=== PATIENT | male | born 1945 ===

== ENCOUNTER → 2018-09-27 | Outpatient (CLI) | payer MEDICARE, BC ==
[2018-09-26 15:41] VITALS: BMI 24.0
[2018-09-27 12:45] VITALS: BP 176/104; PULSE 89; RESP 18; TEMP 98.2
--- NOTE | 2018-09-27 13:10 | P.CONS ---
History of Present Illness - Reason for Consult Consult date: 09/27/18 - Chief Complaint Lower back and left leg pain - History of Present Illness This is a 73-year-old gentleman with history of lower back pain with radiation to the left lower extremity occasionally to the left foot with numbness and tingling in both feet. The patient denies any bowel or bladder dysfunction or any weakness in the lower extremities. He also denies any weight loss recently. This pain gets worse by any prolonged activity. Review of Systems Constitutional: Denies chills, Denies fever Ears, nose, mouth and throat: Denies headache, Denies sore throat Cardiovascular: Denies chest pain, Denies shortness of breath Respiratory: Denies cough Musculoskeletal: Reports as per HPI Neurological: Reports as per HPI Past Medical History Past Medical History: Coronary Artery Disease (CAD), GERD/Reflux, Hyperlipidemia, Hypertension, Myocardial Infarction ([place]) Additional Past Medical History / Comment(s): back pain,bulging discs,numbness left leg and pain Last Myocardial Infarction Date:: 2012 History of Any Multi-Drug Resistant Organisms: None Reported Past Surgical History: Heart Catheterization, Heart Catheterization With Stent, Orthopedic Surgery Additional Past Surgical History / Comment(s): cervical C6-C7 fusion, rt shoulder repair,angioplasty x7,heart stents x9 Past Anesthesia/Blood Transfusion Reactions: No Reported Reaction Date of Last Stent Placement:: Smoking Status: Former smoker Past Alcohol Use History: Rare Additional Past Alcohol Use History / Comment(s): quit 1979,smoked approx 14 yrs 1/2 ppd on and off Past Drug Use History: None Reported - Past Family History Mother Family Medical History: No Reported History Medications and Allergies Home Medications Medication Instructions Recorded Confirmed Type Aspirin 162 mg PO DAILY 09/26/18 09/27/18 History Clopidogrel [Plavix] 75 mg PO DAILY 09/26/18 09/27/18 History Finasteride [Proscar] 5 mg PO DAILY 09/26/18 09/27/18 History Metoprolol Succinate [Toprol XL] 25 mg PO DAILY 09/26/18 09/27/18 History Multivitamins, Thera [Multivitamin 1 tab PO DAILY 09/26/18 09/27/18 History (formulary)] Pantoprazole [Protonix] 40 mg PO DAILY 09/26/18 09/27/18 History Quinapril HCl [Accupril] 40 mg PO DAILY 09/26/18 09/27/18 History Allergies Allergy/AdvReac Type Severity Reaction Status Date / Time No Known Allergies Allergy Verified 09/26/18 15:26 Physical Exam Vitals: Vital Signs Temp Pulse Resp BP Pulse Ox 09/27/18 12:37 98.2 F 89 18 176/104 97 Intake and Output 09/26/18 09/27/18 09/27/18 22:59 06:59 14:59 Other: Weight 78.018 kg - Constitutional General appearance: average body habitus - Respiratory Respiratory: bilateral: CTA - Cardiovascular Rhythm: regular - Neurologic Neuro exam of the lower extremities showed normal and symmetrical muscle strength. Decreased left knee reflex compared to the right knee reflex and absent ankle reflex bilaterally. Straight leg raising test negative bilaterally. Facet loading test is positive Mild tenderness in the lumbar paravertebral area bilaterally. Neurologic: CNII-XII intact - Psychiatric Psychiatric: A&O x's 3, appropriate affect, intact judgment & insight Results Results: The lumbar spine MRI shows degenerative disc disease and severe disc space na rrowing at L5-S1 level with facet arthropathy and moderate bilateral neuroforaminal encroachment at this level. The patient widespread DDD. Assessment and Plan Plan: This is a 73-year-old gentleman with what seems to be lumbar radiculopathy on the left side. The patient has coronary artery disease and he is on Plavix. The patient may benefit from getting lumbar epidural steroid injection at the L4 5 or L5-S1 levels in the left paramedian approach under fluoroscopic guidance. The procedure was explained to the patient and he was agreeable to it. We will contact his bag liner to see if it's safe to hold his Plavix for 7 days before the procedure. I thank you for the referral.
== END | disposition home or self-care (01) ==
LOC: PNWHC3 12:10
PROVIDERS: ATTEND Anesthesiology
DX: M48.07 Spinal stenosis, lumbosacral region (principal); M51.37 Other intervertebral disc degeneration, lumbosacral region; M46.87 Other specified inflammatory spondylopathies, lumbosacral region; I25.10 Atherosclerotic heart disease of native coronary artery without angina pectoris; K21.9 Gastro-esophageal reflux disease without esophagitis; E78.5 Hyperlipidemia, unspecified; I10 Essential (primary) hypertension; I25.2 Old myocardial infarction; Z95.5 Presence of coronary angioplasty implant and graft; Z79.02 Long term (current) use of antithrombotics/antiplatelets; Z98.890 Other specified postprocedural states; Z87.891 Personal history of nicotine dependence; Z79.82 Long term (current) use of aspirin
CPT/HCPCS: 99211

== ENCOUNTER 2018-10-11 08:19 | Day surgery (SDC) | payer MEDICARE, BC ==
[2018-10-04 14:40] VITALS: BMI 24.0
[~2018-10-11 08:19] MED LIST: SODIUM CHLORIDE 0.9% 500 ML 500 ML IV SCH
[2018-10-11 09:36] VITALS: TEMP 97.9
[2018-10-11] MEDS ORDERED: LACTATED RINGERS 1,000 ML IV ONE (09:36)
[2018-10-11] MEDS ORDERED: LIDOCAINE 1% 20 ML VIAL (10MG/ML) FOR IV START INTRADERMA ONE (09:36)
--- NOTE | 2018-10-11 10:50 | P.PCN ---
Date of Procedure: 10/11/18 Procedure(s) Performed: PREOPERATIVE DIAGNOSIS: 1- Lumbar Degenerative Disc Diseases 2-Lumbar spondylosis with Facet arthropathy without myelopathy POSTOPERATIVE DIAGNOSIS: 1-Lumber Degenerative Disc Diseases 2-Lumbar spondylosis with Facet arthropathy without myelopathy PROCEDURE 1. Lumbar epidural steroid injection under fluoroscopic guidance at the L5-S1 level. 2. Lumbar epidurogram. ANESTHESIA: Local with 1% lidocaine 3 ml and , moderate sedation with intravenous Versed 1 mg ,and fentanyle 50 Mcg EBL: Minimal PROCEDURE INDICATION: The patient with low back pain and radiculitis symptoms unresponsive to conservative treatment. Fluoroscopy was used to optimize visualization of the needle placement and to maximize safety. PROCEDURE DESCRIPTION / TECHNIQUE: The patient was seen and identified in the preoperative area. Risks, benefits, complications including but not limited to infections ,bleeding ,allergic reaction to the medications ,nerve damage and not complete pain releife , and alternatives were discussed with the patient. The patient agreed to proceed with the procedure and signed the consent. IV was started, and vital signs were stable. Patient was taken to the OR and time out was completed. The patient was placed in the prone position on procedure table and a pillow was placed under the abdomen to reduce lumbar lordosis. The lumbosacral area was prepped and draped in the usual sterile fashion.ere closely monitored during the procedure. Conscious sedation was used during the procedure to decrease patients anxiety. Vital signs was monitered during the entire procedure. Using anterior-posterior fluoroscopy, the L5-S1 interlaminar space was identified and the skin over this site was marked and then infiltrated with 1% lidocaine subcutaneously. Subsequently, a 20-gauge Tuohy epidural needle was inserted and advanced toward the epidural space using the ``Loss of resistance technique and guided by AP and lateral fluoroscopy. The correct needle position in the epidural space was verified with the injection of 2 mL of the water soluble contrast dye Isovue 200 contrast and observing an excellent epidurogram with the epidural spread of the dye, after negative aspiration for blood and CSF and in the absence of paresthesias. Again after negative aspiration, a 6 ml mixture containing 40 mg of Depo-medrol , and 2 ml of preservative free Normal Saline, and 2 ml of preservative free lidocaine 1% solution was injected and a washout of epidurogram was seen. Needle was withdrawn intact, skin was cleansed, and bandages were applied. COMPLICATIONS: None DISPOSITION / PLANS: The patient was placed in a supine position and transferred to the recovery area in a stable condition for observation. There was no evidence of lower extremity motor or sensory deficit after the procedure. Patient was discharged from the recovery room after meeting discharge criteria. Home discharge instructions were given to the patient by the staff. The patient was reexamined prior to discharge. The patient will schedule a follow up in the clinic in 2-4 weeks.
--- NOTE | 2018-10-11 10:56 | FL ---
EXAMINATION TYPE: FL guided pain mgmt statistic DATE OF EXAM: 10/11/2018 HISTORY: Flouroscopy time 1 seconds of fluoroscopy provided. IMPRESSION: 1. Fluoroscopy time.
[2018-10-11] MEDS ORDERED: IV FLUID CONTINUATION 825 ML IV ONE (10:57)
[2018-10-11 11:17] VITALS: BP 162/74; PULSE 55; RESP 16
== END 2018-10-11 11:30 | disposition home or self-care (01) ==
LOC: ORPAIN 08:19
PROVIDERS: ATTEND Specialist
DX: M47.26 Other spondylosis with radiculopathy, lumbar region (principal); M51.16 Intervertebral disc disorders with radiculopathy, lumbar region; I25.10 Atherosclerotic heart disease of native coronary artery without angina pectoris; Z98.1 Arthrodesis status; I10 Essential (primary) hypertension; E78.5 Hyperlipidemia, unspecified; K21.9 Gastro-esophageal reflux disease without esophagitis; I25.2 Old myocardial infarction; Z95.5 Presence of coronary angioplasty implant and graft; Z87.891 Personal history of nicotine dependence; Z79.02 Long term (current) use of antithrombotics/antiplatelets; Z79.82 Long term (current) use of aspirin; Z79.899 Other long term (current) drug therapy
CPT/HCPCS: 62323; J2250; J1030; J3010; Q9966

== ENCOUNTER 2018-11-02 08:48 | Day surgery (SDC) | payer MEDICARE, BC ==
[2018-10-27 14:50] VITALS: BMI 24.4
[2018-11-02 09:11] VITALS: RESP 16; TEMP 97.7
--- NOTE | 2018-11-02 09:34 | P.PCN ---
Date of Procedure: 11/02/18 Procedure(s) Performed: Lumbar epidural steroid injection Description of Procedure: PREOPERATIVE DIAGNOSIS: 1-lumbar radiculopathy POSTOPERATIVE DIAGNOSIS: Lumbar radiculopathy PROCEDURE 1. Lumbar epidural steroid injection under fluoroscopic guidance at the L5-S1 level. 2. Lumbar epidurogram. ANESTHESIA: Local with 1% lidocaine 5 ml EBL: Minimal PROCEDURE INDICATION: The patient with low back pain and radiculitis symptoms unresponsive to conservative treatment. Fluoroscopy was used to optimize visualization of the needle placement and to maximize safety. PROCEDURE DESCRIPTION / TECHNIQUE: The patient was seen and identified in the preoperative area. Risks, benefits, complications including but not limited to infections ,bleeding ,allergic reaction to the medications ,nerve damage and incomplete pain relief , as well as alternatives to the procedure were discussed with the patient. The patient agreed to proceed with the procedure and signed the consent. IV was started, and vital signs were stable. Patient was taken to the OR and time out was completed. The patient was placed in the prone position on procedure table and a pillow was placed under the abdomen to reduce lumbar lordosis. The lumbosacral area was prepped and draped in the usual sterile fashion. Vitals were closely monitored during the procedure. Using anterior-posterior fluoroscopy, the L5-S1 interlaminar space was identified and the skin over this site was marked and then infiltrated with 1% lidocaine subcutaneously. Subsequently, a 20-gauge Tuohy epidural needle was inserted and advanced toward the epidural space using the ``Loss of resistance technique and guided by AP and lateral fluoroscopy. The correct needle position in the epidural space was verified with the injection of 1 mL of the water soluble contrast dye Omnipaque 180 contrast and observing an excellent epidurogram with the epidural spread of the dye, after negative aspiration for blood and CSF and in the absence of paresthesias. Again after negative aspiration, a 4 ml mixture containing 40 mg of Depo-Medrol and 3 ml of preservative free Normal Saline was injected and a washout of epidurogram was seen. Needle was withdrawn intact, skin was cleansed, and bandages were applied. COMPLICATIONS: None DISPOSITION / PLANS: The patient was placed in a supine position and transferred to the recovery area in a stable condition for observation. There was no evidence of lower extremity motor or sensory deficit after the procedure. Patient was discharged from the recovery room after meeting discharge criteria. Home discharge instructions were given to the patient by the staff. The patient was reexamined prior to discharge. The patient will schedule a follow up in the clinic as needed
--- NOTE | 2018-11-02 09:52 | FL ---
EXAMINATION TYPE: FL guided pain mgmt statistic DATE OF EXAM: 11/02/2018 HISTORY: Flouroscopy time 2 seconds of fluoroscopy provided. IMPRESSION: 1. Fluoroscopy time.
[2018-11-02 09:53] VITALS: BP 139/76; PULSE 55
== END 2018-11-02 10:13 | disposition home or self-care (01) ==
LOC: ORPAIN 08:48
PROVIDERS: ATTEND Hospitalist
DX: M54.16 Radiculopathy, lumbar region (principal); Z79.02 Long term (current) use of antithrombotics/antiplatelets
CPT/HCPCS: 62323; J1030; Q9966

== ENCOUNTER 2019-10-25 14:09 | Observation (INO) | payer MEDICARE, BC ==
[2019-10-25 15:03] LABS: Basophils # (A) 0.1 k/uL (0-0.2); Basophils % (A) 1 %; Eosinophils # (A) 0.7 k/uL (0-0.7); Eosinophils % (A) 6 %; Lymphocytes # (A) 1.9 k/uL (1.0-4.8); Lymphocytes % (A) 19 %; MCHC 33.3 g/dL (31.0-37.0); Mean Platelet Volume 7.6; Monocytes # (A) 0.6 k/uL (0-1.0); Monocytes % (A) 6 %; Neutrophils % (A) 66 %; Platelet Count 261 k/uL (150-450); RBC 4.66 m/uL (4.30-5.90); RDW 14.6 % (11.5-15.5); WBC 10.5 k/uL (3.8-10.6)
[2019-10-25 15:08] LABS: Albumin 4.4 g/dL (3.5-5.0); Potassium 4.3 mmol/L (3.5-5.1); Total Bilirubin 0.3 mg/dL (0.2-1.3); Total Protein 7.2 g/dL (6.3-8.2)
[2019-10-25 15:26] LABS: INR 0.9 (<1.2); Partial Thromboplastin Time 24.5 sec (22.0-30.0); Prothrombin Time 9.6 sec (9.0-12.0)
[2019-10-25 15:28] LABS: D-Dimer 0.89 mg/L FEU (<0.60)
--- NOTE | 2019-10-25 15:30 | XR ---
EXAMINATION TYPE: XR chest 1V DATE OF EXAM: 10/25/2019 COMPARISON: None INDICATION: Chest pain x3 days TECHNIQUE: Single frontal view of the chest is obtained. FINDINGS: The heart size is upper limits of normal.. The pulmonary vasculature is normal. The lungs are clear. IMPRESSION: 1. No acute pulmonary process.
--- NOTE | 2019-10-25 15:47 | ED ---
Chest Pain HPI - General Chief Complaint: Chest Pain Stated Complaint: Chest Pain Time Seen by Provider: 10/25/19 14:47 Source: patient, RN notes reviewed Mode of arrival: wheelchair Limitations: no limitations - History of Present Illness Initial Comments: Is a 74-year-old male history of heart disease with multiple stents in a plastics who presents today with complaints of yesterday of retrosternal chest pain with radiation to his left arm 6 or 7/10 severity is worse no current chest pain no shortness breath fevers chills nausea vomiting sweats at this time. He states pain it feels similar to his previous episodes. This has been going on for told 3/2 days. Most of his cardiac work was done at [facility]. MD Complaint: chest pain - Related Data Home Medications Medication Instructions Recorded Confirmed Aspirin 162 mg PO DAILY 09/26/18 10/25/19 Clopidogrel [Plavix] 75 mg PO DAILY 09/26/18 10/25/19 Finasteride [Proscar] 5 mg PO DAILY 09/26/18 10/25/19 Metoprolol Succinate [Toprol XL] 25 mg PO DAILY 09/26/18 10/25/19 Pantoprazole [Protonix] 40 mg PO DAILY 09/26/18 10/25/19 Quinapril HCl [Accupril] 40 mg PO DAILY 09/26/18 10/25/19 Cyanocobalamin (Vitamin B-12) 2,000 mcg PO DAILY 10/25/19 10/25/19 [Vitamin B-12] Nitroglycerin Sl Tabs [Nitrostat] 0.4 mg SL Q5M PRN 10/25/19 10/25/19 Ubidecarenone [Co Q-10] 100 mg PO DAILY 10/25/19 10/25/19 Allergies Allergy/AdvReac Type Severity Reaction Status Date / Time No Known Allergies Allergy Verified 10/25/19 15:45 Review of Systems ROS Statement: Those systems with pertinent positive or pertinent negative responses have been documented in the HPI. ROS Other: All systems not noted in ROS Statement are negative. EKG Findings - EKG Results: EKG: interpreted by LEROY, sinus rhythm (Sinus rhythm a 61. We'll 154 QRS duration 84 QT since QTC 412/[address]-T wave changes) Past Medical History Past Medical History: Coronary Artery Disease (CAD), GERD/Reflux, Hyperlipidemia, Hypertension, Myocardial Infarction ([place]) Additional Past Medical History / Comment(s): back pain,bulging discs,numbness left leg and pain Last Myocardial Infarction Date:: 2012 History of Any Multi-Drug Resistant Organisms: None Reported Past Surgical History: Heart Catheterization, Heart Catheterization With Stent, Orthopedic Surgery Additional Past Surgical History / Comment(s): cervical C6-C7 fusion, rt shoulder repair,angioplasty x7,heart stents x9 Past Anesthesia/Blood Transfusion Reactions: No Reported Reaction Date of Last Stent Placement:: Past Psychological History: No Psychological Hx Reported Smoking Status: Former smoker Past Alcohol Use History: Rare Past Drug Use History: None Reported - Past Family History Mother Family Medical History: No Reported History General Exam - General Exam Comments Initial Comments: This is a well-developed well-nourished awake alert oriented 3 male Limitations: no limitations General appearance: alert, in no apparent distress Head exam: Present: atraumatic, normocephalic, normal inspection Eye exam: Present: normal appearance, PERRL, EOMI. Absent: scleral icterus, conjunctival injection, periorbital swelling ENT exam: Present: normal exam, mucous membranes moist Neck exam: Present: normal inspection. Absent: tenderness, meningismus, lymphadenopathy Respiratory exam: Present: normal lung sounds bilaterally. Absent: respiratory distress, wheezes, rales, rhonchi, stridor Cardiovascular Exam: Present: regular rate, normal rhythm, normal heart sounds. Absent: systolic murmur, diastolic murmur, rubs, gallop, clicks GI/Abdominal exam: Present: soft, normal bowel sounds. Absent: distended, tenderness, guarding, rebound, rigid Extremities exam: Present: normal inspection, full ROM, normal capillary refill. Absent: tenderness, pedal edema, joint swelling, calf tenderness Back exam: Present: normal inspection Neurological exam: Present: alert, oriented X3, CN II-XII intact Psychiatric exam: Present: normal affect, normal mood Skin exam: Present: warm, dry, intact, normal color. Absent: rash Course Vital Signs 10/25/19 10/25/19 14:15 15:26 Temperature 98.2 F Pulse Rate 72 60 Respiratory 18 18 Rate Blood Pressure 221/92 187/82 O2 Sat by Pulse 97 99 Oximetry Chest Pain MDM - MDM I did reevaluate patient several occasions pain-free at this time the presentation is consistent with angina. Patient does have a mildly elevated d- dimer and will get a CAT scan. I did discuss the findings the patient's daughter patient be admitted cardiology consultation. Disposition Clinical Impression: Chest pain, Unstable angina pectoris Disposition: ADMITTED IP TO THIS [facility] Condition: Fair Referrals: Chris Quinn MD [Primary Care Provider] - 1-2 days
[2019-10-25] MEDS ORDERED: NITROGLYCERIN OINT 1 INCH/GM PACKET TOPICAL STA (16:17)
[2019-10-25] MEDS ORDERED: HEPARIN SODIUM,PORCINE 5,000 UNIT/ML 1 ML VIAL IV ONE (16:20)
[2019-10-25] MEDS ORDERED: NITROGLYCERIN SL TABS 0.4 MG TAB SUBLINGUAL PRN ×2 (16:20→21:02)
[2019-10-25] MEDS ORDERED: HEPARIN SOD,PORK IN 0.45% NACL 25,000 UNIT in 0.45% NACL 1 250ML.BAG IV SCH (16:30)
[2019-10-25] MEDS ORDERED: SODIUM CHLORIDE 0.9% 1,000 ML IV SCH (16:30)
--- NOTE | 2019-10-25 16:53 | CT ---
EXAMINATION TYPE: CT angio chest DATE OF EXAM: 10/25/2019 COMPARISON: Radiograph same day HISTORY: 74-year-old male with chest pain TECHNIQUE: Contiguous axial scanning of the chest performed with IV Contrast, patient injected with 8 0 mL of Isovue 370. Coronal/sagittal MIP reconstructions performed. CT DLP: 349.7 mGycm Automated exposure control for dose reduction was used. FINDINGS: Heart upper limits of normal in size without pericardial effusion. Extensive three-vessel coronary ar kennedy calcifications are present. No flattening of the interventricular septum or reflux of contrast i nto the hepatic veins. Aortic root and borderline ectatic at 3.6 cm. Mild atherosclerotic arch calcifications. There is a di rect takeoff of the left vertebral artery directly from the aortic arch. Satisfactory opacification of the pulmonary arterial system. Assessment of the basilar segmental lowe r lobe and inferior lingular segmental and more distal pulmonary arteries is nondiagnostic due to roseanne athing motion. Otherwise, no pulmonary embolus elsewhere in the lungs. Mild dependent atelectasis. Mild diffuse bronchial wall thickening. No consolidation or pleural effus ion. Prominent 1 cm left hilar lymph node likely reactive/post inflammatory. Otherwise, no mesenteric or r etroperitoneal lymphadenopathy. Tiny hiatal hernia. Bones: Mild degenerative disc disease upper thoracic spine. IMPRESSION: 1. BREATHING MOTION AT THE LOWER LUNGS. BASILAR LOWER LOBE SEGMENTAL, INFERIOR LINGULAR SEGMENTAL, AN D MORE DISTAL PULMONARY ARTERIAL BRANCHES IN THESE REGIONS ARE NONDIAGNOSTIC DUE TO THE BREATHING MOT ION. NO EVIDENCE FOR PULMONARY EMBOLUS ELSEWHERE IN THE LUNGS. 2. MILD DIFFUSE BRONCHIAL WALL THICKENING. CORRELATE FOR BRONCHITIS OR ASTHMA. 3. CAD WITH EXTENSIVE THREE-VESSEL CORONARY ARTERY CALCIFICATIONS.
--- NOTE | 2019-10-25 21:10 | P.HPIM ---
History of Present Illness H&P Date: 10/25/19 Chief Complaint: Chest pain History of presenting complaint: This is a very pleasant 74-year-old patient of Dr. Quinn. 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 Patient's had several stents last one being in 2017. Chronic stable medical conditions include GERD, hyperlipidemia, hypertension, active pain with herniated disc and some radicular presents in the left leg. P atient for last 3-4 days been having pain across the chest sometimes into shoulder and jaw. Mostly coming on with activity in the morning. No dizziness no lightheadedness shortness of breath. Pain duration is variable. Admitted with unstable angina. Review of systems: GEN.: None EYES: None HEENT: None NECK: None RESPIRATORY: None CARDIOVASCULAR: As above GASTROINTESTINAL: None GENITOURINARY: BPH symptoms MUSCULOSKELETAL: None LYMPHATICS: None HEMATOLOGICAL: None PSYCHIATRY: None NEUROLOGICAL: None Past medical history to include: Cor artery disease with multiple stents, GERD, hypertension, hyperlipidemia, low back pain with herniated disc and 71 to patches left like Social history: Patient stopped smoking in 1979 smoked for about 14 years about half a pack a day on and off. Alcohol rarely. . Used to work with [employer] in multiple jobs Family history: Reviewed, noncontributory to presentation Physical examination: VITAL SIGNS: 98.2, 72, 18, 187/82, 97% on room air GENERAL: BMI 25.0, sitting at the edge of the bed, not in distress. EYES: Pupils equal. Conjunctiva normal. HEENT: External appearance of nose and ears normal, oral cavity grossly normal. NECK: JVD not raised; masses not palpable. HEART: First and second heart sounds are normal; no edema. LUNGS: Respiratory rate normal; clear to auscultation. ABDOMEN: Soft, nontender, liver spleen not palpable, no masses palpable. PSYCH: Alert and oriented x3; mood and affect normal. NEUROLOGICAL: Cranial nerves grossly intact; no facial asymmetry, power and sensation grossly intact. LYMPHATICS: No lymph nodes palpable in the axilla and neck INVESTIGATIONS, reviewed in the clinical context: White count 10.5 hemoglobin 14 platelets 261 progression 4.3 creatinine 1.20 Pulmonary less than 0.012 EKG tracing personally reviewed by me-normal sinus rhythm Chest x-ray film personally reviewed by me-no obvious infiltrates CT chest-no evidence of PE Assessment: -Unstable angina in a patient with known multiple coronary stents. No EKG changes troponin negative. -Coronary artery disease multiple stents in the past -GERD -Hyperlipidemia -Essential hypertension -Lumbar spine herniated disc with left-sided radiculopathy Plan: Currently chest pain-free. Home medications resumed. Patient is put on IV heparin. Cardiology consulted. Care was discussed with the patient question were answered. -We'll keep the patient nothing by mouth after midnight except medications. Past Medical History Past Medical History: Coronary Artery Disease (CAD), GERD/Reflux, Hyperlipidemia, Hypertension, Myocardial Infarction ([place]) Additional Past Medical History / Comment(s): back pain,bulging discs,numbness left leg and pain Last Myocardial Infarction Date:: 2012 History of Any Multi-Drug Resistant Organisms: None Reported Past Surgical History: Heart Catheterization, Heart Catheterization With Stent, Orthopedic Surgery Additional Past Surgical History / Comment(s): cervical C6-C7 fusion, rt shoulder repair,angioplasty x7,heart stents x9 Past Anesthesia/Blood Transfusion Reactions: No Reported Reaction Date of Last Stent Placement:: Past Psychological History: No Psychological Hx Reported Smoking Status: Former smoker Past Alcohol Use History: Rare Additional Past Alcohol Use History / Comment(s): quit 1979,smoked approx 14 yrs 1/2 ppd on and off Past Drug Use History: None Reported - Past Family History Mother Family Medical History: No Reported History Medications and Allergies Home Medications Medication Instructions Recorded Confirmed Type Aspirin 162 mg PO DAILY 09/26/18 10/25/19 History Clopidogrel [Plavix] 75 mg PO DAILY 09/26/18 10/25/19 History Finasteride [Proscar] 5 mg PO DAILY 09/26/18 10/25/19 History Metoprolol Succinate [Toprol XL] 25 mg PO DAILY 09/26/18 10/25/19 History Pantoprazole [Protonix] 40 mg PO DAILY 09/26/18 10/25/19 History Quinapril HCl [Accupril] 40 mg PO DAILY 09/26/18 10/25/19 History Cyanocobalamin (Vitamin B-12) 2,000 mcg PO DAILY 10/25/19 10/25/19 History [Vitamin B-12] Nitroglycerin Sl Tabs [Nitrostat] 0.4 mg SL Q5M PRN 10/25/19 10/25/19 History Ubidecarenone [Co Q-10] 100 mg PO DAILY 10/25/19 10/25/19 History Allergies Allergy/AdvReac Type Severity Reaction Status Date / Time No Known Allergies Allergy Verified 10/25/19 15:45 Physical Exam Vitals: Vital Signs Temp Pulse Pulse Resp BP BP Pulse Ox 10/25/19 18:45 97.8 F 73 18 171/84 98 10/25/19 17:30 98.0 F 64 18 179/83 96 10/25/19 16:00 64 18 183/84 98 10/25/19 15:30 60 18 187/82 98 10/25/19 15:26 60 18 187/82 99 10/25/19 14:15 98.2 F 72 18 221/92 97 Intake and Output 10/25/19 10/25/19 10/25/19 06:59 14:59 22:59 Other: Weight 80.286 kg 80.286 kg Results CBC & Chem 7: 10/25/19 14:40 10/25/19 14:40 Labs: Abnormal Lab Results - Last 24 Hours (Table) 10/25/19 10/25/19 Range/Units 14:40 14:40 D-Dimer 0.89 H (<0.60) mg/L FEU BUN 27 H (9-20) mg/dL Creatine Kinase 204 H (55-170) U/L Thrombosis Risk Factor Assmnt - Choose All That Apply Each Risk Factor Represents 2 Points: Age 61-74 years Other congenital or acquired thrombophilia - If yes, enter type in comment: No Thrombosis Risk Factor Assessment Total Risk Factor Score: 2 Thrombosis Risk Factor Assessment Level: Low Risk
[2019-10-26 02:01] LABS: Cholesterol 191 mg/dL (<200); HDL Cholesterol 46 mg/dL (40-60); LDL Cholesterol,Calculated 133 mg/dL (0-99); Triglycerides 62 mg/dL (<150)
[2019-10-26] MEDS: NITROGLYCERIN OINT 1 INCH/GM PACKET TOPICAL SCH ×3 (07:40→13:24)
[2019-10-26] MEDS ORDERED: CAFFEINE CITRATE 60 MG/3 ML VIAL IV PRN (07:42)
[2019-10-26] MEDS ORDERED: AMINOPHYLLINE 500 MG/20 ML VIAL IV PRN (07:42)
[2019-10-26] MEDS ORDERED: REGADENOSON 0.4 MG/5 ML SYRINGE IV ONE (07:42)
[2019-10-26] MEDS ORDERED: amLODIPine 5 MG TAB PO STA (08:01)
[2019-10-26 08:52] VITALS: PULSE 66; RESP 20
[2019-10-26] MEDS ORDERED: CYANOCOBALAMIN 500 MCG TAB PO SCH (09:00)
[2019-10-26] MEDS ORDERED: LISINOPRIL 20 MG TAB PO SCH (09:00)
[2019-10-26] MEDS ORDERED: METOPROLOL SUCCINATE (ER) 25 MG TAB.ER.24H PO SCH (09:00)
[2019-10-26] MEDS ORDERED: ASPIRIN 325 MG TAB PO SCH (09:00)
[2019-10-26] MEDS ORDERED: CLOPIDOGREL 75 MG TAB PO SCH (09:00)
[2019-10-26] MEDS ORDERED: FINASTERIDE 5 MG TAB PO SCH (09:00)
[2019-10-26] MEDS ORDERED: PANTOPRAZOLE 40 MG TABLET PO SCH (09:00)
[2019-10-26] MEDS ORDERED: ASPIRIN 81 MG PO SCH (09:00)
[2019-10-26] MEDS ORDERED: NON FORMULARY DRUG (Ubidecarenone [Co Q-10] 100 MG) PO SCH (09:00)
--- NOTE | 2019-10-26 09:01 | CONS ---
CONSULTATION This is a 74-year-old gentleman with a known history of CAD who has most of his health care in [facility] and also now in the [facility], [place]. This gentleman came in with episode of what he describes as discomfort in the chest. He showed up in the emergency room complaining of retrosternal pressure with radiation to left upper extremity that seemed to occur at rest, not necessarily with activity. However, he had an elevated D-dimer, underwent a CT angio which was not the best of studies, but there is no clear-cut evidence of any large pulmonary arterial embolism. He is resting comfortably, has no chest pain. His troponins are normal. He feels comfortable at the time of my evaluation. This gentleman underwent multivessel stenting in various hospitals starting from 2003 at [facility] and the last stenting was performed at [facility] in [place]. He had 2 stents to the mid and distal RCA and also another drug-eluting Promus stent to the circumflex, whether LAD was ever stented or not is somewhat unclear. PAST MEDICAL HISTORY: 1. CAD with multivessel PCI and myocardial infarction. 2. Hypertension. 3. Hyperlipidemia. 4. Gastroesophageal reflux disease. 5. He also has some back problems as well. 6. The patient had cervical spine surgery and right shoulder surgery as well. ALLERGIES: None. MEDICATIONS: Medications include aspirin 162 mg daily, Plavix 75 mg daily, Proscar 5 mg daily, metoprolol succinate 25 mg daily, Protonix 40 mg daily, Accupril 40 mg daily, vitamin supplements. PHYSICAL EXAMINATION: On examination, blood pressure is 160/70, pulse rate 62 per minute, regular. HEENT: Unremarkable. Fundus was not examined by me. Neck is supple. There is no JVD. I do not hear any carotid bruit. Heart exam reveals S1, S2 heard normally. There is a short systolic murmur. Lungs reveal diminished air entry. Abdomen is soft, nontender. Lower extremities reveal diminished pulses. Central nervous system is normal. EKG revealed sinus mechanism with borderline voltage criteria for LVH. No acute changes. LABORATORY DATA: Laboratory data revealed that 3 sets of troponins are unremarkable. IMPRESSION: 1. Chest pain with elevated D-dimer of 0.89. The quality of chest pain seems atypical, but patient has a significant history of multivessel PCI. 2. Hypertension. 3. Hyperlipidemia. 4. History of cervical spine surgery, also has back problems. RECOMMENDATIONS: This patient underwent stenting of mid and distal RCA and circumflex in February 2017 at [facility]. Prior to that he had multivessel stenting since 2003, those details are unavailable. His troponins are negative. He is resting comfortably. I am advising a Lexiscan stress test and if this is normal, he can be discharged. I discussed my thoughts in detail with the patient. I suggested that if the stress test suggests any abnormality, he would require coronary angiography. His CT angiography did not reveal any large pulmonary embolism. The patient understands the above- outlined plan and is agreeable with it. MMODL / IJN: [id number] /
--- NOTE | 2019-10-26 11:13 | NM ---
EXAMINATION TYPE: NM stress lexiscan cardiolite DATE OF EXAM: 10/26/2019 COMPARISON: NONE HISTORY: Chest pain TECHNIQUE: After the intravenous administration of 9.43 mCi Tc 99m Sestamibi - Cardiolite resting SP ECT images acquired 45 minutes post injection. The patient received 0.4mg Lexiscan, 25.1 mCi Tc 99m Sestamibi - Stress images obtained [address] injection FINDINGS: There is thinning of the cardiac apex. This appears fixed. No reversible perfusion defects are eviden t. Polar maps appear normal. Gated wall motion is normal. Ejection fraction of 54% is normal. IMPRESSION: 1. No stress-induced ischemic change.
[2019-10-26 13:26] VITALS: BP 163/77; TEMP 98
--- NOTE | 2019-10-26 15:19 | EST ---
EXERCISE STRESS AGE: 74 SEX: M HT: 5'10" WT: 180 PROTOCOL: Lexiscan Cardiolite Study HEART RATE REST: 57 BLOOD PRESSURE REST: 207/87 MAXIMUM HEART RATE ACHIEVED: 92 MAXIMUM BLOOD PRESSURE: 207/87 85% MPHR: 127 100% MPHR: 147 INDICATIONS: Chest pain. CLINICAL INFORMATION: Baseline rhythm is sinus mechanism, rate of 57, normal axis and intervals, poor R-wave progression from V1 to V3. Baseline blood pressure 207/87 mmHg. Patient received injection of Lexiscan. Electrocardiograph monitoring revealed no evidence of diagnostic ischemic ST deviation. Cardiolite was injected per protocol. CONCLUSION: 1. Nondiagnostic electrocardiographic stress testing. 2. Nuclear images will be reported separately. MMODL / IJN: [id number] /
[2019-10-26] MEDS ORDERED: AMINOPHYLLINE 500 MG/20 ML VIAL IV ONE (16:10)
--- NOTE | 2019-10-26 21:55 | P.DS ---
Providers Date of admission: 10/25/19 16:20 Expected date of discharge: 10/26/19 Attending physician: Ari Glynn Consults: 10/25/19 16:20 Consult Physician Urgent Consulting Provider: Eric Angulo Consult Reason/Comments: Chest pain, unstable angina Do you want consulting provider notified?: Yes Primary care physician: [facility] Course: Chief Complaint: Chest pain History of presenting complaint: This is a very pleasant 74-year-old patient of Dr. Quinn. Patient's had his county ordinary to [place]. Patient's had several stents last one being in 2017. Chronic stable medical conditions include GERD, hyperlipidemia, hypertension, active pain with herniated disc and some radicular presents in the left leg. Patient for last 3-4 days been having pain across the chest sometimes into shoulder and jaw. Mostly coming on with activity in the morning. No dizziness no lightheadedness shortness of breath. Pain duration is variable. Admitted with unstable angina. Troponins were negative. Nuclear stress was negative. Cleared by cardiac surgery. Discussed with patient Consultation: Dr. ALEE Angulo from cardiology Physical examination: VITAL SIGNS: 98, 66, 20, 151/74, 96% on room air GENERAL: Sitting up, comfortable EYES: Pupils equal. Conjunctiva normal. HEENT: External appearance of nose and ears normal, oral cavity grossly normal. NECK: JVD not raised; masses not palpable. HEART: First and second heart sounds are normal; no edema. LUNGS: Respiratory rate normal; clear to auscultation. ABDOMEN: Soft, nontender, liver spleen not palpable, no masses palpable. PSYCH: Alert and oriented x3; mood and affect normal. INVESTIGATIONS, reviewed in the clinical context: White count 10.5 hemoglobin 14 platelets 261 progression 4.3 creatinine 1.20 Pulmonary less than 0.012 EKG tracing personally reviewed by me-normal sinus rhythm Chest x-ray film personally reviewed by me-no obvious infiltrates CT chest-no evidence of PE Nuclear stress test-negative for ischemia Assessment: -Possible Unstable angina in a patient with known multiple coronary stents. No EKG changes troponin negative. Negative stress test -Coronary artery disease multiple stents in the past -GERD -Hyperlipidemia -Essential hypertension -Lumbar spine herniated disc with left-sided radiculopathy Disposition: Home Patient Condition at Discharge: Stable Plan - Discharge Summary New Discharge Prescriptions: New amLODIPine [Norvasc] 5 mg PO DAILY #30 tab Continue Pantoprazole [Protonix] 40 mg PO DAILY Finasteride [Proscar] 5 mg PO DAILY Aspirin 162 mg PO DAILY Metoprolol Succinate [Toprol XL] 25 mg PO DAILY Quinapril HCl [Accupril] 40 mg PO DAILY Clopidogrel [Plavix] 75 mg PO DAILY Ubidecarenone [Co Q-10] 100 mg PO DAILY Nitroglycerin Sl Tabs [Nitrostat] 0.4 mg SL Q5M PRN PRN Reason: Chest Pain Cyanocobalamin (Vitamin B-12) [Vitamin B-12] 2,000 mcg PO DAILY Discharge Medication List Aspirin 162 mg PO DAILY 09/26/18 [History] Clopidogrel [Plavix] 75 mg PO DAILY 09/26/18 [History] Finasteride [Proscar] 5 mg PO DAILY 09/26/18 [History] Metoprolol Succinate [Toprol XL] 25 mg PO DAILY 09/26/18 [History] Pantoprazole [Protonix] 40 mg PO DAILY 09/26/18 [History] Quinapril HCl [Accupril] 40 mg PO DAILY 09/26/18 [History] Cyanocobalamin (Vitamin B-12) [Vitamin B-12] 2,000 mcg PO DAILY 10/25/19 [History] Nitroglycerin Sl Tabs [Nitrostat] 0.4 mg SL Q5M PRN 10/25/19 [History] Ubidecarenone [Co Q-10] 100 mg PO DAILY 10/25/19 [History] amLODIPine [Norvasc] 5 mg PO DAILY #30 tab 10/26/19 [Rx] Follow up Appointment(s)/Referral(s): [employer] [Other] - 1 Week () Jay Alfonso NPC [Family Provider] - 11/01/19 8:00 am Patient Instructions/Handouts: Hypertension (DC), Cardiac Stress Test (DC) Discharge Disposition: HOME SELF-CARE
[2019-10-27] MEDS ORDERED: amLODIPine 5 MG TAB PO SCH (09:00)
== END 2019-10-26 17:10 | disposition home or self-care (01) ==
LOC: EC 14:09 → 3SCARD 16:20
PROVIDERS: ADMIT Hospitalist; ATTEND Hospitalist
DX: R07.89 Other chest pain (principal); Z95.5 Presence of coronary angioplasty implant and graft; I25.10 Atherosclerotic heart disease of native coronary artery without angina pectoris; K21.9 Gastro-esophageal reflux disease without esophagitis; E78.5 Hyperlipidemia, unspecified; I10 Essential (primary) hypertension; M51.16 Intervertebral disc disorders with radiculopathy, lumbar region; Z87.891 Personal history of nicotine dependence; I25.2 Old myocardial infarction; Z98.1 Arthrodesis status; Z79.82 Long term (current) use of aspirin; Z79.02 Long term (current) use of antithrombotics/antiplatelets; Z79.899 Other long term (current) drug therapy; R79.89 Other specified abnormal findings of blood chemistry
CPT/HCPCS: 96366 ×2; 93005 ×2; 96376; 96365; 99285; 36415; 93017; 85379; 83880; 80061; 80053; 82550; 83690; 83735; 84484 ×2; 85025; 85610; 85730 ×2; 71045; 71275; 78452; G0378 ×2; A9500; S0138; J1644 ×2; J0280; J2785; Q9967

== ENCOUNTER → 2020-02-28 | Outpatient (CLI) | payer MEDICARE, BC ==
[2020-02-28 14:39] VITALS: BP 160/78; PULSE 78; RESP 18; TEMP 98.1
--- NOTE | 2020-02-28 15:05 | P.PN ---
Progress Note - Text Progress Note Date: 02/28/20 This is addendum to the note dictated earlier Patient has to hold Plavix for 5-7 days before the procedure
--- NOTE | 2020-02-28 15:05 | P.PAINPG ---
Subjective Progress Note Date: 02/28/20 This is a follow-up visit for this 74 years old male with a chronic history of severe low back pain, he is diagnosed with lumbar degenerative disc disease and lumbar radiculopathy,patient was seen last year in 2019 and we did a lumbar epidural steroid injections and he got excellent pain relief, currently is complaining of severe low back pain with radiation to the lower extremity associated with some numbness and tingling sensation, is able to ambulate freely without any restriction but, the pain interferes with his quality of life, he denies any fever or night sweats he denies any change in the bowel movement or urination Objective - Vital Signs Vital signs: Vital Signs Temp 98.1 F 02/28/20 14:31 Pulse 78 02/28/20 14:31 Resp 18 02/28/20 14:31 BP 160/78 02/28/20 14:31 Pulse Ox 97 02/28/20 14:31 Intake & Output 02/27/20 02/28/20 02/28/20 18:59 06:59 18:59 Weight 78.471 kg - Exam Physical Examinations : -Constitutiona : Cooperative , not in acute distress . -HEENT : nech : supple , no Lymphadenopathy , normal thyroid size . : eyes : no ptosis , no icterus, no photophobia . - neurologic : Cranial nerve II to XII intact , no focal neurological deffecit . -psychatric : alert , oriented X 3 , appropriate affect , intact judgment and insight . -Lymphatic : no Lymphadenopathy . - musculoskeltal : Lumber spine moter stegnth lower extremities ,thigh and legs 5/5 Right side , 5/5 Left side deep tendon reflexes : normal Knee Jerk , normal ankle Jerk lumber facet Loading Test =positive Right , positive Left Range of motion of the lumbar spine Flexion 30 degrees, extension 10 degrees strait leg raising test = positive at 30 degree Fabere test= positive Right , and positive LT . Assessment and Plan Plan: Lumbar radiculopathy Lumbar degenerative disc disease. He showed good benefit from lumbar epidural steroid injection at L L5-S1 , procedure risk and benefits and alternatives discussed with the patient he agreed with the preceding Time with Patient: Less than 30 PQRS Measure Charge Sheet Measure #130: Documentation of Current Meds in Medical Chart: Patient's medications documented in chart Measure #226: Tobacco Use: Screen & Cessation Intervention: Pt not a tobacco user Measure #111: Pneumonia Vaccination: Pneumococcal vaccine NOT administered or previously given Measure #47: Advance Care Plan: Advance care planning discussed & documented, pt chose/unable to give Measure #412: Opioid Treatment Agreement: No documentation of signed opioid treatment agreement Measure #408: Opioid Therapy Follow-up Evaluation: Patient had NO f/u eval minimum every 3 months during opioid therapy Measure #317: Preventitive Care & Scrn High Bld Press & F/U: Pre-hypertensive or hypertensive BP documented, pt will f/u with PCP Measure #128: Body Mass Index (BMI) Screening & Follow-up: BMI documented within normal parameters Measure #131: Pain Assessment & Follow-up: Pain positive & plan documented, Follow-up scheduled Measure #431: Unhealthy Alcohol Use Preventative Care & Scrn: Patient not identified as an unhealthy alcohol user PQRS Narrative: Smoking Status Former smoker Blood Pressure 160/78 Pain Intensity [Left Lower 7 Back] Scale Used Numeric (1 - 10) Hx Alcohol Use (MH) No Home Medications: Ambulatory Orders Aspirin 162 mg PO DAILY 09/26/18 Clopidogrel [Plavix] 75 mg PO DAILY 09/26/18 Finasteride [Proscar] 5 mg PO DAILY 09/26/18 Metoprolol Succinate [Toprol XL] 25 mg PO DAILY 09/26/18 Pantoprazole [Protonix] 40 mg PO DAILY 09/26/18 Quinapril HCl [Accupril] 40 mg PO DAILY 09/26/18 Cyanocobalamin (Vitamin B-12) [Vitamin B-12] 2,000 mcg PO DAILY 10/25/19 Nitroglycerin Sl Tabs [Nitrostat] 0.4 mg SL Q5M PRN 10/25/19 Ubidecarenone [Co Q-10] 100 mg PO DAILY 10/25/19 amLODIPine [Norvasc] 5 mg PO DAILY #30 tab 10/26/19 Controlled Substance Measures - Controlled Substance Measures Is patient prescribed a controlled substance at discharge?: No
== END | disposition home or self-care (01) ==
LOC: PNWHC3 14:12
PROVIDERS: ATTEND Specialist
DX: G89.29 Other chronic pain (principal); M51.16 Intervertebral disc disorders with radiculopathy, lumbar region; Z87.891 Personal history of nicotine dependence; Z79.82 Long term (current) use of aspirin; Z79.899 Other long term (current) drug therapy
CPT/HCPCS: 99211

== ENCOUNTER 2020-03-26 07:49 | Day surgery (SDC) | payer MEDICARE, BC ==
[2020-03-21 10:54] VITALS: BMI 24.4
[~2020-03-26 07:49] MED LIST changes: +LACTATED RINGERS 1,000 ML IV SCH; -SODIUM CHLORIDE 0.9% 500 ML 500 ML IV SCH
[2020-03-26] MEDS ORDERED: LIDOCAINE 1% (10MG/ML) FOR IV START INTRADERMA ONE (08:35)
[2020-03-26 08:39] VITALS: TEMP 97
[2020-03-26] MEDS ORDERED: IOPAMIDOL M200 10 ML VIAL ONE (09:01)
[2020-03-26] MEDS ORDERED: fentaNYL (PF) 50 MCG/ML 2 ML AMP ONE (09:01)
[2020-03-26] MEDS ORDERED: MIDAZOLAM 2 MG/2 ML VIAL ONE (09:01)
[2020-03-26] MEDS ORDERED: methylPREDNISolone ACETATE 80 MG/ML 1 ML VIAL ONE (09:01)
--- NOTE | 2020-03-26 09:16 | P.PCN ---
Date of Procedure: 03/26/20 Procedure(s) Performed: PREOPERATIVE DIAGNOSIS: 1- Lumbar Degenerative Disc Diseases 2-Lumbar spondylosis with Facet arthropathy without myelopathy POSTOPERATIVE DIAGNOSIS: 1-Lumber Degenerative Disc Diseases 2-Lumbar spondylosis with Facet arthropathy without myelopathy PROCEDURE 1. Lumbar epidural steroid injection under fluoroscopic guidance at the L5-S1 level. 2. Lumbar epidurogram. ANESTHESIA: Local with 1% lidocaine 3 ml and , moderate sedation with intravenous Versed 1 mg ,and fentanyle 50 Mcg EBL: Minimal PROCEDURE INDICATION: The patient with low back pain and radiculitis symptoms unresponsive to conservative treatment. Fluoroscopy was used to optimize visua lization of the needle placement and to maximize safety. PROCEDURE DESCRIPTION / TECHNIQUE: The patient was seen and identified in the preoperative area. Risks, benefits, complications including but not limited to infections ,bleeding ,allergic reaction to the medications ,nerve damage and not complete pain releife , and alternatives were discussed with the patient. The patient agreed to proceed with the procedure and signed the consent. IV was started, and vital signs were stable. Patient was taken to the OR and time out was completed. The patient was placed in the prone position on procedure table and a pillow was placed under the abdomen to reduce lumbar lordosis. The lumbosacral area was prepped and draped in the usual sterile fashion.ere closely monitored during the procedure. Conscious sedation was used during the procedure to decrease patients anxiety. Vital signs was monitered during the entire procedure. Using anterior-posterior fluoroscopy, the L5-S1 interlaminar space was identified and the skin over this site was marked and then infiltrated with 1% lidocaine subcutaneously. Subsequently, a 20-gauge Tuohy epidural needle was inserted and advanced toward the epidural space using the ``Loss of resistance technique and guided by AP and lateral fluoroscopy. The correct needle position in the epidural space was verified with the injection of 2 mL of the water s oluble contrast dye Isovue 200 contrast and observing an excellent epidurogram with the epidural spread of the dye, after negative aspiration for blood and CSF and in the absence of paresthesias. Again after negative aspiration, a 6 ml mixture containing 60 mg of Depo-medrol , and 2 ml of preservative free Normal Saline, and 2 ml of preservative free lidocaine 1% solution was injected and a washout of epidurogram was seen. Needle was withdrawn intact, skin was cleansed, and bandages were applied. COMPLICATIONS: None DISPOSITION / PLANS: The patient was placed in a supine position and transferred to the recovery area in a stable condition for observation. There was no evidence of lower extremity motor or sensory deficit after the procedure. Patient was discharged from the recovery room after meeting discharge criteria. Home discharge instructions were given to the patient by the staff. The patient was reexamined prior to discharge. The patient will schedule a follow up in the clinic in 2-4 weeks.
[2020-03-26] MEDS ORDERED: IV FLUID CONTINUATION 600 ML IV ONE (09:20)
[2020-03-26 09:26] VITALS: RESP 16
[2020-03-26 09:41] VITALS: BP 131/82; PULSE 55
--- NOTE | 2020-03-26 12:25 | FL ---
EXAMINATION TYPE: FL guided pain mgmt statistic DATE OF EXAM: 03/26/2020 CLINICAL HISTORY: Low back pain. TECHNIQUE: Fluoroscopy. COMPARISON: None. FINDINGS: Fluoroscopic guidance was provided during pain relief procedure performed by Dr. Wilhelm . A total of 1 second of fluoroscopic time was utilized during the procedure and 1 spot images are a cquired. Single image acquired shows needle localization at L5 level with contrast injection. IMPRESSION: As Above.
== END 2020-03-26 09:59 | disposition home or self-care (01) ==
LOC: ORPAIN 07:49
PROVIDERS: ATTEND Specialist
DX: M47.26 Other spondylosis with radiculopathy, lumbar region (principal); M51.16 Intervertebral disc disorders with radiculopathy, lumbar region; Z79.02 Long term (current) use of antithrombotics/antiplatelets; I25.10 Atherosclerotic heart disease of native coronary artery without angina pectoris; I10 Essential (primary) hypertension
CPT/HCPCS: 62323; J2250; J1040; J3010; Q9966

== ENCOUNTER 2020-04-16 12:27 | Day surgery (SDC) | payer MEDICARE, BC ==
[2020-04-12 14:32] VITALS: BMI 24.5
[2020-04-16 13:21] VITALS: RESP 16; TEMP 97.4
[2020-04-16] MEDS ORDERED: fentaNYL (PF) 50 MCG/ML 2 ML AMP ONE (13:39)
[2020-04-16] MEDS ORDERED: methylPREDNISolone ACETATE 40 MG/ML 1 ML VIAL ONE (13:39)
[2020-04-16] MEDS ORDERED: IOPAMIDOL M200 10 ML VIAL ONE (13:39)
[2020-04-16] MEDS ORDERED: MIDAZOLAM 2 MG/2 ML VIAL ONE (13:39)
--- NOTE | 2020-04-16 13:48 | P.PCN ---
Date of Procedure: 04/16/20 Procedure(s) Performed: PREOPERATIVE DIAGNOSIS: 1- Lumbar Degenerative Disc Diseases 2-Lumbar spondylosis with Facet arthropathy without myelopathy POSTOPERATIVE DIAGNOSIS: 1-Lumber Degenerative Disc Diseases 2-Lumbar spondylosis with Facet arthropathy without myelopathy PROCEDURE 1. Lumbar epidural steroid injection under fluoroscopic guidance at the L5-S1 level. 2. Lumbar epidurogram. ANESTHESIA: Local with 1% lidocaine 3 ml and , moderate sedation with intravenous Versed 1 mg ,and fentanyle 50 Mcg EBL: Minimal PROCEDURE INDICATION: The patient with low back pain and radiculitis symptoms unresponsive to conservative treatment. Fluoroscopy was used to optimize visu alization of the needle placement and to maximize safety. PROCEDURE DESCRIPTION / TECHNIQUE: The patient was seen and identified in the preoperative area. Risks, benefits, complications including but not limited to infections ,bleeding ,allergic reaction to the medications ,nerve damage and not complete pain releife , and alternatives were discussed with the patient. The patient agreed to proceed with the procedure and signed the consent. IV was started, and vital signs were stable. Patient was taken to the OR and time out was completed. The patient was placed in the prone position on procedure table and a pillow was placed under the abdomen to reduce lumbar lordosis. The lumbosacral area was prepped and draped in the usual sterile fashion.ere closely monitored during the procedure. Conscious sedation was used during the procedure to decrease patients anxiety. Vital signs was monitered during the entire procedure. Using anterior-posterior fluoroscopy, the L5-S1 interlaminar space was identified and the skin over this site was marked and then infiltrated with 1% lidocaine subcutaneously. Subsequently, a 20-gauge Tuohy epidural needle was inserted and advanced toward the epidural space using the ``Loss of resistance technique and guided by AP and lateral fluoroscopy. The correct needle position in the epidural space was verified with the injection of 2 mL of the water soluble contrast dye Isovue 200 contrast and observing an excellent epidurogram with the epidural spread of the dye, after negative aspiration for blood and CSF and in the absence of paresthesias. Again after negative aspiration, a 6 ml mixture containing 60 mg of Depo-medrol , and 2 ml of preservative free Normal Saline, and 2 ml of preservative free lidocaine 1% solution was injected and a washout of epidurogram was seen. Needle was withdrawn intact, skin was cleansed, and bandages were applied. COMPLICATIONS: None DISPOSITION / PLANS: The patient was placed in a supine position and transferred to the recovery area in a stable condition for observation. There was no evidence of lower extremity motor or sensory deficit after the procedure. Patient was discharged from the recovery room after meeting discharge criteria. Home discharge instructions were given to the patient by the staff. The patient was reexamined prior to discharge. The patient will schedule a follow up in the clinic in 2-4 weeks.
--- NOTE | 2020-04-16 14:01 | FL ---
Fluoroscopy HISTORY: Pain 1 seconds fluoroscopy time supplied to the referring clinician. 1 intraoperative C-arm images docume nt the procedure. See dictated report from anesthesia.
[2020-04-16 14:18] VITALS: BP 136/67; PULSE 64
== END 2020-04-16 14:30 | disposition home or self-care (01) ==
LOC: ORPAIN 12:27
PROVIDERS: ATTEND Specialist
DX: M47.26 Other spondylosis with radiculopathy, lumbar region (principal); M51.16 Intervertebral disc disorders with radiculopathy, lumbar region; I25.10 Atherosclerotic heart disease of native coronary artery without angina pectoris; Z79.02 Long term (current) use of antithrombotics/antiplatelets
CPT/HCPCS: 62323; J2250; J1030; J3010; Q9966

== ENCOUNTER → 2020-04-29 | Outpatient (CLI) | payer MEDICARE, BC ==
[2020-04-29 13:28] VITALS: BP 202/96; PULSE 81; RESP 20; TEMP 98.7
--- NOTE | 2020-04-29 13:52 | P.PN ---
Subjective Progress Note Date: 04/29/20 This is a 75-year-old gentleman with a history of chronic lower back pain with radiation to the right lower extremity. He also has a history of peripheral neuropathy of unknown cause. He had lumbar epidural steroid injection last year which helped him significantly with his pain however after the most recent lumbar epidural steroid injection which was done about 2 weeks ago his pain did not get any better and he is frustrated because of that. The patient takes Plavix for history of coronary artery disease and stent placement. Patient denies new-onset weakness, bowel/bladder incontinence, or any other signs or symptoms of cauda equina syndrome. There are no signs of acute intoxication, and no indications of medication diversion or overuse. In addition to above, 13-point review of systems is also negative for chest pain, shortness of breath, changes in vision, changes in hearing, new onset weakness, abdominal pain, diarrhea, extreme fatigue, malaise, fever, skin changes, homicidal or suicidal ideation, or bowel or bladder incontinence. Vital Signs: Reviewed in EMR Gen: AAOx3, NAD HEENT: PERRLA,hearing grossly normal Pulm: resp unlabored Neck: supple, trachea midline Neuro exam of the lower extremities: Symmetrical knee reflexes and absent ankle reflexes. Decreased muscle strength to 4 out of 5 bilaterally for knee flexion and extension and normal ankle flexion and extension bilaterally. Straight leg raising test: Negative Ben's test: Positive on the right side Range of motion of the lumbar spine: Tenderness in the paravertebral musculature: Positive tenderness around the right sacroiliac joint Neuro: CN II-XII grossly intact, Imaging: Reviewed in EMR/chart Assessment: Coronary artery disease with treatment with Plavix Lumbar spondylosis without myelopathy Right lumbar radiculopathy Peripheral neuropathy Right sacroiliitis Plan: 1. Explanation: Opioid and psychological risk scores were reviewed. Diagnoses, prognoses, and multiple treatment options including but not limited to physical therapy, interventional therapies, adjuvant medical therapies, narcotic medication therapies, and surgery were discussed with the patient and all questions were answered to the patient's satisfaction. 2. Opioid agreement: Signed with the patient and the patient is warned not to use opioids while driving or before driving and not to combine opioids with benzodiazepines or alcohol. 3. Counseling: The patient was counseled extensively on SMOKING CESSATION, BODY MASS INDEX, EXERCISE. Specifically, the patient was instructed regarding the importance of smoking cessation, obesity, and exercise in the context of both chronic pain and overall health. 4. Procedures: Schedule for right sacroiliac joint steroid injection under fluoroscopic guidance. We will used 25-gauge needle and we will hold pressure for at least 3 minutes after the procedure on the sacroiliac joint. The patient does not have to hold his Plavix for this procedure. 5. Consultations: None 6. Investigations: None 7. Medications: I asked the patient to bring the list of his medications when he comes back with the procedure and if he is not on Lyrica or Neurontin then we will prescribe him either one of these medications. 8. Disposition: Return to the above-mentioned procedure as soon as possible 9. Maps were reviewed and were appropriate. Objective - Vital Signs Vital signs: Vital Signs Temp 98.7 F 04/29/20 13:17 Pulse 81 04/29/20 13:17 Resp 20 04/29/20 13:17 BP 202/96 04/29/20 13:17 Pulse Ox 97 04/29/20 13:17
== END | disposition home or self-care (01) ==
LOC: PNWHC3 13:11
PROVIDERS: ATTEND Anesthesiology
DX: M47.26 Other spondylosis with radiculopathy, lumbar region (principal); M46.1 Sacroiliitis, not elsewhere classified; G62.9 Polyneuropathy, unspecified; I25.10 Atherosclerotic heart disease of native coronary artery without angina pectoris; Z79.02 Long term (current) use of antithrombotics/antiplatelets
CPT/HCPCS: 99211

== ENCOUNTER → 2023-04-23 | Outpatient (CLI) | payer MEDICARE, BC ==
[2023-04-23 15:40] LABS: Basophils # (A) 0.05 X 10*3/uL (0.00-0.10); Basophils % (A) 0.8 %; Eosinophils # (A) 0.67 X 10*3/uL (0.04-0.35); Eosinophils % (A) 10.6 %; HCT 43.8 % (39.6-50.0); HGB 14.3 d/dL (13.0-17.0); Lymphocytes # (A) 1.35 X 10*3/uL (0.90-5.00); Lymphocytes % (A) 21.4 %; MCHC 32.6 d/dL (32.0-37.0); MCV 91.8 FL (80.0-97.0); Mean Platelet Volume 10.6 FL (9.5-12.2); Monocytes # (A) 0.53 X 10*3/uL (0.20-1.00); Monocytes % (A) 8.4 %; NRBC Per 100 WBC 0 X 10*3/uL (0.00-0.01); Neutrophils # (A) 3.69 X 10*3/uL (1.80-7.70); Neutrophils % (A) 58.5 %; Platelet Count 223 X 10*3/uL (140-440); RBC 4.77 X 10*6/uL (4.40-5.60); RDW 13.8 % (11.5-14.5); WBC 6.31 X 10*3/uL (4.50-10.00)
[2023-04-23 17:01] LABS: BUN/Creat Ratio 16.25 Ratio (12.00-20.00); Blood Urea Nitrogen 19.5 mg/dL (9.0-27.0); Calcium 9.5 mg/dL (8.7-10.3); Carbon Dioxide 25.2 mmol/L (21.6-31.8); Chloride 104 mmol/L (96-109); Glucose 98 mg/dL (70-110); Potassium 4.6 mmol/L (3.5-5.5); Sodium 139 mmol/L (135-145)
[2023-04-23 17:19] LABS: INR 0.93 sec (0.93-1.11); Prothrombin Time 10.5 sec (9.9-11.9)
== END | disposition home or self-care (01) ==
LOC: LABWHC1 10:53
PROVIDERS: ATTEND Orthopaedic Surgery
DX: Z01.812 Encounter for preprocedural laboratory examination (principal); Z22.322 Carrier or suspected carrier of Methicillin resistant Staphylococcus aureus; M16.11 Unilateral primary osteoarthritis, right hip
CPT/HCPCS: 36415; 80048; 85025; 85610; 86850; 86900; 86901; 87070

== ENCOUNTER → 2025-01-01 | Outpatient (CLI) | payer MEDICARE, BC ==
[2025-01-01 12:29] VITALS: BP 157/78; PULSE 75; RESP 16; TEMP 97.8
--- NOTE | 2025-01-01 15:44 | P.PAINPG ---
PQRS Measure Charge Sheet Comment: HISTORY OF PRESENT ILLNESS: A 79 yr old male as a referral from [facility] presents today w severe and chronic LBP > 2 yrs secondary to radiculopathy, spondylosis and facet arthropathy without myelopathy for evaluation. Pt states pain level is provoked at 7 /10 in intensity, constant, localized in the lumbar spine, predominantly axial, stabbing in character w occasional shooting pain towards the hips. Pain is provoked by bending. Pain is alleviated by physician guided home stretches daily since Jan 2023, heat, medications, topical, manual massage, repositioning and rest . Oswestry axial pain score at 31. PMH: OA, CAD, GERD, Hyperlipidemia, HTN, DC (2012), Vitamin D Deficiency, BPH PSH: C6-C7 Fusion, Coronary Bypass/CABG x3 (2020), Heart Catheterization, Heart Catheterization With Stent x9 (2016), Angioplasty x8, R Shoulder Surgery, BL Cataract Excisions SH: Former tobacco user, No ETOH use, No illicit drug use FH: No Reported History All: See list Medications include ASA, Independence REVIEW OF ORGAN SYSTEMS: CONSTITUTIONAL: No fevers or chills. No recent weight loss . NEUROLOGICAL: + numbness and tingling along the distal extremities. No seizure disorders or headaches. MUSCULOSKELETAL: + pain PSYCHIATRIC: Denies current depression or suicidal thoughts. Physical Examinations : Constitutional : Cooperative , not in acute distress . Neurologic : Cranial nerve II to XII intact. No focal neurological deficits. Psychiatric : alert & oriented x 3. Matching mood & appropriate affect. Judgment & insight intact. Musculoskeletal : Cervical Spine Motor strength in the deltoid and biceps: Normal right side. Normal Left side Motor strength biceps and the wrist ext ensors: Normal right side . Normal left side Motor strength in the triceps muscle: Normal right side. Normal left side Deep tendon reflexes: Normal at the biceps. Normal at Brachioradialis. Normal at triceps Vertebral body tenderness to deep palpation over Cervical facet loading test: positive bilaterally Spurling test: positive bilaterally Neck distraction test: positive bilaterally Andra sign: positive bilaterally Lumbar spine Motor strength lower extremities ,thigh and legs 5/5 Right side , 5/5 Left side Deep tendon reflexes : Normal Knee Jerk. Normal Ankle Jerk Vertebral body tenderness over L1 Lai Test positive BL L1-L2 Lumbar facet Loading Test: positive Right / positive Left Range of motion of the lumbar spine Flexion 30 degrees, extension 10 degrees Straight Leg Raise test: Left/ Right positive at degrees Vanna test: positive right / positive left. Severe tenderness over the Sacroiliac joint on the Right / Left sides Gaenslen test: positive bilaterally Seated flexion test: positive bilaterally. Sacral spine : Severe tenderness over the Sacroiliac joint: right side / left side Range of motion: Flexion of the lumbar spine <60 degrees Range of motion: Extension of the lumbar spine <20 degrees Gaenslen's Test positive Vanna test: positive right side / left side Thigh Thrust Test Sacral Thrust Test Imaging: MRI non contrast lumbar spine from 01/27/23 reviewed Assessment/ Plan : L1-L2 radiculopathy, lumbar facet arthropathy Recommendation of KATELYN L1-L2 #1. Would also benefit from RFA L3-S1. Risks, benefits of procedure discussed and patient verbalized understanding. Admits to anti- coagulant use or medical history of diabetes. Protocol for discontinuation/ continuation of medications jean procedure discussed. All questions answered. I have spent greater than 30 minutes on patient care today. Dr Wilhelm was available by phone for the evaluation of this patient. The time was used to review the medical records including relevant urine studies and Prescription history (MAPs), review of the available imaging, evaluation and examination of the patient, coordination of care with the medical staff and if applicable referring physicians, as well as creation of the medical record - Pain Location Bilateral Lower Back Non-Pharmacological Interventions: Chiropractic Treatment, Heat, Home Exercise, Ice, Physical Therapy, Relaxation Technique Pharmacological Interventions: Medication PQRS Narrative: Smoking Status Former smoker Hx Alcohol Use (MH) No Home Medications: Ambulatory Orders Aspirin 162 mg PO DAILY 09/26/18 Metoprolol Succinate [Toprol XL] 50 mg PO DAILY 09/26/18 Pantoprazole [Protonix] 40 mg PO DAILY 09/26/18 Quinapril HCl [Accupril] 40 mg PO DAILY 09/26/18 Nitroglycerin Sl Tabs [Nitrostat] 0.4 mg SL Q5M PRN 10/25/19 Tamsulosin(Unk) 0.4 mg PO DAILY 04/27/23 Aspirin 325 mg PO DAILY #30 tab 05/04/23 Sennosides/Docusate Sodium [Senna-S 8.6-50 mg Tablet] 2 each PO DAILY PRN #30 tablet 05/04/23 HYDROcodone/APAP 10-325MG [Independence 10-325] 1 tab PO Q4HR PRN 3 Days #18 tab 01/01/25 Controlled Substance Measures - Controlled Substance Measures Is patient prescribed a controlled substance at discharge?: Yes When asked, does pt state using other controlled substances?: Yes If prescribed controlled substance>3 days was MAPS reviewed?: Prescribed <3 Days
== END ==
LOC: PNWHC3 11:51
PROVIDERS: ATTEND Specialist
DX: M47.26 Other spondylosis with radiculopathy, lumbar region (principal); Z87.891 Personal history of nicotine dependence; Z88.5 Allergy status to narcotic agent; Z88.6 Allergy status to analgesic agent
CPT/HCPCS: 99202

== ENCOUNTER 2025-01-26 11:29 | Day surgery (SDC) | payer MEDICARE, BC ==
[2025-01-26 12:02] VITALS: TEMP 97.3
[2025-01-26 12:07] LABS: Glucose,Whole Blood 98 mg/dL (70-110)
[2025-01-26] MEDS ORDERED: IOPAMIDOL M300 15ML VIAL ONE (13:00)
[2025-01-26] MEDS ORDERED: methylPREDNISolone ACETATE 80 MG/ML 1 ML VIAL ONE (13:00)
--- NOTE | 2025-01-26 13:13 | P.PCN ---
Description of Procedure: PREOPERATIVE DIAGNOSIS: 1- Lumbar Degenerative Disc Diseases 2-Lumbar spondylosis with Facet arthropathy without myelopathy. 3-lumbar spinal stenosis 4-Lumber radiculopathy POSTOPERATIVE DIAGNOSIS: 1-lumbar degenerative disc disease. 2-lumbar spondylosis with facet arthropathy without myelopathy. 3-lumbar spinal stenosis. 4-Lumber radiculopathy PROCEDURE Injection of radio contrast material into L1-2 interspace, interpretation of epidurogram, injection of steroid at L1-2 epidural space under fluoroscopic guidance. ANESTHESIA: Lidocaine 1% subcutaneously. In OR continuous pulse ox, EKG, blood pressure and verbal communication was maintained with the patient. EBL: Minimal PROCEDURE INDICATION: Before the procedure were discussed with the patient detailed procedure, alternatives, complications including infection, bleeding, nerve damage, paralysis all of which could be permanent. Patient understands and all questions were answered. PROCEDURE DESCRIPTION : After getting consent, patient in OR in prone position. Back was prepped with chlorhexidine and draped in sterile fashion. After injecting 10 mL of 1% lidocaine subcutaneously, a 20-gauge Tuohy needle was introduced at L1-2 interspace with loss of resistance technique using a syringe filled with air. Negative CSF, negative blood, negative paresthesia. Needle position was confirmed with AP and lateral view of the fluoroscope. After repeat negative aspiration 2 mL of Omnipaque 200 water soluble contrast was injected. Contrast was noted in the epidural space. No contrast was noted into intrathecal or intravascular space. After repeat negative aspiration 6 mL solution was injected intermittently which consists of 5 mL of preservative-free normal saline mixed with 1 mL of 80 mg Depo-Medrol. Needle was withdrawn intact. Skin was cleansed and Band-Aids was applied. DISPOSITION / PLANS: The patient tolerated the procedure well. No complication. The patient was placed in a supine position and transferred to the recovery area in a stable condition for observation. There was no evidence of lower extremity motor or sensory deficit after the procedure. Patient was discharged from the recovery room after meeting discharge criteria. Home discharge instructions were given to the patient by the staff. The patient was reexamined prior to discharge. The patient will schedule a follow up in the clinic in 2-4 weeks.
--- NOTE | 2025-01-26 13:31 | FL ---
EXAMINATION TYPE: FL guided pain mgmt statistic Intraoperative/procedural fluoroscopic services were provided. CLINICAL INDICATION:Male, 79 years old with history of LESI; , [facility] FINDINGS: Fluoroscopic image demonstrating lumbar epidural steroid injection. No radiographic evidence for comp lication. Total fluoroscopy time is 7.0 seconds. DAP: [id number] [id number] Please see the operative/procedural note for further details. [facility], , 01/26/2025 1:28 PM
[2025-01-26 14:00] VITALS: BP 142/88; PULSE 78; RESP 16
== END 2025-01-26 14:00 | disposition home or self-care (01) ==
LOC: ORPAIN 11:29
PROVIDERS: ATTEND Pain Medicine Interventional Pain Medicine
DX: M47.816 Spondylosis without myelopathy or radiculopathy, lumbar region (principal); M48.061 Spinal stenosis, lumbar region without neurogenic claudication; M51.369 Other intervertebral disc degeneration, lumbar region without mention of lumbar back pain or lower extremity pain
CPT/HCPCS: 62323; Q9967; J1010